=== PATIENT | female | born 1950 | race Caucasian/White ===

== ENCOUNTER 2017-08-18 04:30 | Emergency (ER) | payer MEDICARE, OTHER ==
--- NOTE | 2017-08-18 05:03 | ERNOTE ---
Abdominal HPI - General Chief Complaint: Abdominal Pain Time Seen by Provider: 08/18/17 04:50 Source: patient Exam Limitations: no limitations - Immun/Allergies/Home Medications Immunizatons: IMMUNIZATION HX Immunizations Up to Date Yes History of Influenza Vaccine Yes Allergies/Adverse Reactions: Allergies propoxyphene [From Darvon] Allergy (Verified 08/18/17 04:40) simvastatin Allergy (Verified 08/18/17 04:40) Home Medications: HOME MEDICATIONS Aspirin [Aspirin Chewable] 81 mg PO DAILY 08/18/17 [Last Taken Unknown] Bisacodyl 5 mg PO DAILY PRN 08/18/17 [Last Taken 08/17/17 20:00] Gabapentin [Neurontin] 600 mg PO 08/18/17 [Last Taken Unknown] HYDROcodone/ACETAMINOPHEN [Hydrocodon-Acetaminophen 5-325] 1 each PO QID [Last Taken 08/17/17 20:00 y] Lisinopril [Prinivil] 10 mg PO DAILY 08/18/17 [Last Taken Unknown] Nabumetone [Relafen] 500 mg PO BID #10 tab 08/18/17 [Last Taken Unknown] Omeprazole 20 mg PO DAILY 08/18/17 [Last Taken Unknown] Phenytoin Sodium Extended [Dilantin] 400 mg PO DAILY 08/18/17 [Last Taken Unknown] Rosuvastatin Calcium 5 mg PO DAILY 08/18/17 [Last Taken Unknown] Triamterene/Hydrochlorothiazid [Maxzide 37.5MG/25 MG] 1 tab PO DAILY 08/18/17 [ Last Taken Unknown] traMADol HCL [Tramadol HCl] 50 mg PO QID PRN 08/18/17 [Last Taken Unknown] - History of Present Illness Narrative: Pt has had right lower rib pain for a week. She has seen her PCP 3 times for this. She is scheduled for an U/S today at [place] but couldn't stand the pain. Timing: constant Quality: moderate, severe, dullness Activities at Onset: none Modifying Factors - (Improves): Present: analgesics Associated Symptoms: Absent: nausea, vomiting Prior Abdominal Problems: Present: none Prior Treatment: Present: recently seen, treated by physician, currently on antibiotics Review of Systems - Review of Systems Constitutional: Present: fever - up to 101, weakness EYE: Present: no symptoms reported ENT: Present: no symptoms reported Respiratory: Absent: shortness of breath Cardiology: Absent: chest pain Gastrointestinal/Abdominal: Present: See HPI, constipation. Absent: nausea, vomiting Genitourinary: Absent: frequency, dysuria Musculoskeletal: Present: back pain Skin: Present: rash - on right side 2 weeks ago, red "like a sunburn". No blisters Neurological: Present: weakness - right arm Endocrine: Present: no symptoms reported Hematologic/Lymphatic: Present: no symptoms reported Psych: Present: no symptoms reported - Patient's Past Medical History Patient History - Medical: GERD, Seizures Patient History - Cardiac/Respiratory: Coronary Heart Disease, Hypertension, Hyperlipidemia Patient History - Cancer: No Hx of Cancer Patient History - Surgical Procedures: Cataracts, Tubal Ligation Patient History - Other: None - Social History Living Situations: home Abuse History: No History of abuse Psych History: No pertinent hx Smoking Status: Never smoker Patient requests Smoking Cessation Consult: No Initiate information on Smoking Cessation: No Alcohol Use: none Drug Use: none - Immunizations Immunizations Up to Date: Yes History of Influenza Vaccine: Yes Physical Exam - Physical Exam General Appearance: Present: wd/wn, alert, no apparent distress Head Exam: Present: normal inspection, no evidence of injury Eye Exam: Normal inspection: bilateral Neck: Present: normal inspection, nontender, supple Respiratory: Present: no respiratory distress, no accessory muscle use, lungs clear Cardiovascular/Chest: Present: regular rate, rhythm, no murmur Gastrointestinal/Abdominal: Present: normal bowel sounds, tenderness - far lateral RUQ into ribs.. Absent: guarding, rebound Back Exam: Present: normal inspection, no vertebral tenderness Extremity Exam: Present: non-tender, normal range of motion Neurological Exam: Present: alert, oriented, normal mood/affect, no motor/ sensory deficits Skin Exam: Present: other - brusing laterally right lower ribs/ upper abdomen. No rash no blisters no scaring ED Progress - Results and Orders Patient's Lab Results:: I have reviewed the patient's lab results. Results and Orders: Laboratory Tests 08/18/17 08/18/17 08/18/17 05:20 05:20 05:38 WBC 9.0 Hgb 13.9 Hct 40.3 Plt Count 208 Sodium 137 Potassium 4.2 Chloride 102 Carbon Dioxide 26.5 BUN 21 Creatinine 0.76 Random Glucose 138 H Calcium 8.8 Total Bilirubin 0.4 AST 20 ALT 30 Alkaline Phosphatase 126 Total Protein 7.2 Albumin 3.7 Amylase 32 Lipase 102 Urine Color Yellow Urine Appearance Clear Urine pH 6.0 Ur Specific [place] 1.015 Urine Protein Negative Urine Glucose (UA) Negative Urine Ketones Negative Urine Blood Negative Urine Nitrate Negative Urine Bilirubin Negative Urine Urobilinogen Normal Ur Leukocyte Esterase Negative Urine RBC None seen Urine WBC None seen Ur Epithelial Cells 0-5 Urine Bacteria None seen Urine Culture Comments No culture indicated - Vital Signs Patient's Vital Signs:: I have reviewed the patient's vital signs. Vital Signs: Vital Signs 08/18/17 04:31 Temperature 36.7 C Pulse Rate 67 Respiratory 20 Rate Blood Pressure 132/70 O2 Sat by Pulse 98 Oximetry - CT/Ultrasound CT/Ultrasound Narrative: IMPRESSION: 1. No evidence of renal stones or obstructive uropathy. 2. Hepatosplenomegaly. 3. Somewhat distended appearance of the gallbladder. Consider gallbladder ultrasound given clinical history. 4. Diverticulosis of the colon and stool retention suggestive of constipation. No definite acute diverticulitis suggested. 5. Noninflammatory, nondilated appendix visualized. Potential appendicolith noted. 6. Prominence of the proximal small bowel loops as above. Probably artifactual but consider enteritis. 7. Incidental abdominal aortic atherosclerosis. Incidental calcified aortic valve. Correlate clinically. Additional comments and limitations are as above. Preliminary interpretation given by [facility] on 08/18/2017 7:03 AM. Electronically signed by Rocael Kennedy M.D.. - Progress/Reassessment Chief Complaint: Abdominal Pain Progress:: Improved Progress Note-Subjective: 08/18/17 08:14 discussed findings and possible causes of her abdominal pain. suggested she keep her appointment with ultrasound later today. Pt expressed agreement with plan Departure Clinical Impression: Hepatomegaly Abdominal pain Qualifiers: Abdominal location: right upper quadrant Qualified Code(s): R10.11 - Right upper quadrant pain - Departure Disposition: Home Follow Up Needed Condition: Good Instructions: Abdominal Pain, Adult, [id number] Additional Instructions: keep your appointment for the ultrasound today. Take pain medication as needed for pain Referrals: Di Uribe FNP [Primary Care Provider] - Prescriptions: Nabumetone [Relafen] 500 mg PO BID #10 tab
[2017-08-18] MEDS ORDERED: NORMAL SALINE 1,000 ML IV ONE (05:04)
[2017-08-18 05:28] LABS: Hematocrit 40.3 % (37.0-47.0); Hemoglobin 13.9 gm/dL (12.5-16.0); Mean Cell Volume 93.5 fl (78-100); Mean Corpuscular Hemoglobin 32.3 pg (27-31); Mean Corpuscular Hgb Conc 34.5 g/dl (32-36); Mean Platelet Volume 9.5 fl (6.0-9.5); Neutrophil # 6.3 K/mm3 (1.3-6.0); Neutrophil % 70.3 % (42-75.0); Platelet Count 208 K/mm3 (150-450); Red Blood Count 4.31 M/mm3 (4.2-5.4); Red Cell Distribution Width 14.7 % (11.5-14.0)
[2017-08-18 05:40] LABS: Urine Bilirubin Negative (NEGATIVE); Urine Blood Negative /ul (NEGATIVE); Urine Ketone Negative (NEGATIVE); Urine Nitrite Negative (NEGATIVE); Urine Protein Negative (NEGATIVE); Urine Specific Gravity 1.015 SP.GR. (1.005-1.010); Urine Urobilinogen Normal (NORMAL)
[2017-08-18 05:41] LABS: Albumin * 3.7 gm/dl (3.4-5.0); Anion Gap 12.7 mmol/L (6.8-13.8); BUN/Creatinine Ratio 27.6 (9.0-21.6); Bilirubin, Total 0.4 mg/dL (0.0-1.1); Ca. Corrected For Albumin 8.7 mg/dL (8.4-10.2); Calcium * 8.8 mg/dL (7.9-10.9); Carbon Dioxide 26.5 mmol/L (24-32.6); Potassium 4.2 mmol/L (3.4-4.6); Total Protein 7.2 gm/dL (6.2-8.2)
[2017-08-18 05:50] LABS: Urine Appearance Clear; Urine Bacteria None Seen; Urine Color Yellow; Urine RBC None Seen /hpf (0-5); Urine WBC None Seen /hpf (0-5)
[2017-08-18] MEDS ORDERED: KETOROLAC TROMETHAMINE 30 MG/ML VIAL IV ONE (06:35)
[2017-08-18] MEDS ORDERED: KETOROLAC TROMETHAMINE 30 MG/ML VIAL ONE (06:39)
[2017-08-18 07:28] VITALS: BP 123/65
== END 2017-08-18 08:15 | disposition home or self-care (01) ==
LOC: ER 04:30
DX: R16.0 Hepatomegaly, not elsewhere classified (principal); R10.11 Right upper quadrant pain